=== PATIENT | female | born 1995 | race Caucasian/White ===

== ENCOUNTER 2017-01-30 20:37 | Outpatient (CLI) | payer MEDICAID ==
[~2017-01-30] VITALS: Ht 165.1 cm; Wt 88.6 kg
[2017-01-30 21:22] LABS: DAU SCREEN DISCLAIMER
[2017-01-30 21:26] LABS: AMNI OBC PASS; AMNISURE NEGATIVE (NEGATIVE)
[2017-01-30 21:37] VITALS: BP 126/62
[2017-01-30] MEDS ORDERED: TERBUTALINE 1 MG/ML, 1ML SQ ONE (22:00)
[2017-01-30] MEDS ORDERED: CEFTRIAXONE 1,000 MG IM ONE (22:00)
[2017-01-30] MEDS ORDERED: TERBUTALINE 1 MG/ML, 1ML ONE (22:03)
[2017-01-31] MEDS ORDERED: ACETAMINOPHEN 325 MG TABLET PO ONE (00:30)
== END 2017-01-31 00:23 | disposition home or self-care (01) ==
LOC: LDOP 20:37
PROVIDERS: ATTEND Obstetrics & Gynecology
DX: O26.892 Other specified pregnancy related conditions, second trimester (principal); O62.9 Abnormality of forces of labor, unspecified; O42.912 Preterm premature rupture of membranes, unspecified as to length of time between rupture and onset of labor, second trimester; R10.9 Unspecified abdominal pain; Z3A.23 23 weeks gestation of pregnancy
CPT/HCPCS: 59025; 80307; 81001; 84112; 87086; 96372; 99201; J0696; J3105; G0463